=== PATIENT | male | born 1980 | race Caucasian/White ===

== ENCOUNTER 2025-02-21 00:34 | Emergency (ER) | payer BC ==
[2025-02-21] MEDS ORDERED: Ondansetron PF 4 MG/2 ML Vial ONE ×3 (01:06→08:50)
[2025-02-21] MEDS ORDERED: Ketorolac Tromethamine 30 MG (1 mL) VIAL ONE ×2 (01:06→08:50)
[2025-02-21 01:09] LABS: #Basophils 0.1 thou/uL (0.0-0.2); #Eosinophils 0.2 thou/uL (0.0-0.7); #Lymphocytes 1.9 thou/uL (1.20-3.40); #Monocytes 0.4 thou/uL (0.11-0.59); #Neutrophils 3.3 thou/uL (1.40-6.50); %Basophils 1.8 % (0.0-1.0); %Eosinophils 3.7 % (0.0-10.0); %Lymphocytes 32.0 % (21.0-51.0); %Monocytes 7.2 % (0.0-10.0); %Neutrophils 55.4 % (42.0-75.0); Hematocrit 56.4 % (42.0-52.0); Hemoglobin 18.2 g/dL (14.0-18.0); Mean Corpuscular Hemoglobin 28.3 pg (27.0-31.0); Mean Corpuscular Volume 87.7 fl (78.0-98.0); Platelet Count 215 10x3/uL (130-400); Red Blood Cell (RBC) Count 6.43 mill/uL (4.70-6.10); White Blood Cell (WBC) Count 5.9 10x3/uL (4.8-10.8)
[2025-02-21 01:51] LABS: ALT (SGPT) 25 U/L (Less than 45); AST (SGOT) 30 U/L (11-34); Albumin 4.4 g/dL (3.1-4.5); Alkaline Phosphatase 66 U/L (40-110); Anion Gap 17 mmol/L (10-20); BUN (Urea Nitrogen) 17 mg/dL (8.9-20.6); Bilirubin, Total 0.6 mg/dL (0.3-1.2); Calc. Creatinine Clearance 0 mL/min (70-130); Calcium 9.5 mg/dL (7.8-10.44); Carbon Dioxide 26 mmol/L (22-29); Chloride 102 mmol/L (98-107); Globulin 2.9 g/dL (2.4-3.5); Glucose 121 mg/dL (70-105); Potassium 3.8 mmol/L (3.5-5.1); Sodium 141 mmol/L (136-145)
[2025-02-21 04:04] LABS: Glucose, Urine (Dipstick) Negative (Negative); Leukocyte Negative (Negative); Protein, Urine (Dipstick) Negative (Neg-Trace); Specific Gravity, Urine 1.020 (1.005-1.030)
[2025-02-21 04:05] LABS: Bacteria/HPF None Seen HPF (None Seen); CAUTI Indications for Culture Dysuria,urgency,freq; RBC/HPF None Seen HPF (0-3); WBC/HPF None Seen HPF (0-3)
[2025-02-21 04:06] LABS: Urine Culture Reflex No No
[2025-02-21] MEDS ORDERED: Pantoprazole 40 MG VIAL ONE (04:09)
[2025-02-21] MEDS ORDERED: Lidocaine Viscous Sol 2% 15 ml UD Cup ONE (04:10)
[2025-02-21] MEDS ORDERED: Mag-Al Plus 1200/1200/120 MG (30 mL) UDCUP ONE (04:10)
== END 2025-02-21 09:07 | disposition short-term general hospital (02) ==
LOC: BURERS 00:34
DX: N13.2 Hydronephrosis with renal and ureteral calculous obstruction (principal); N28.9 Disorder of kidney and ureter, unspecified; E86.0 Dehydration
CPT/HCPCS: 74176; 80053; 81001; 85025; 96361; 96374; 96375; 96376; J1885; J2270; J2405; J2470